=== PATIENT | female | born 1980 | race Caucasian/White ===

== ENCOUNTER 2019-06-02 09:00 | Outpatient (RCR) | payer MEDICAID, SELFPAY ==
--- NOTE | 2019-06-02 09:10 | BH.SGPN.GN ---
Behaviors/Verbalizations/Mental Status: [] Eye contact is good. Motor activity is appropriate. Appearance is casual. Speech is Appropriate. Mood is anxious. Affect is congruent. Thoughts are linear and logical. No evidence of psychosis. Reviewed daily check in sheet and no reports of suicidal ideations or intent. Client Response/Progress/Benefit: [] Pt spoke when prompted. This was pt's first group in IOP and remained quiet. Introduced herself however did not discuss any symptoms or what led her to IOP. Group welcomed her. No progress noted. Benefited from group support. Will continue in IOP to prevent decompensation, stabilize mood, and improve functioning. Narrative Note: []
--- NOTE | 2019-06-02 10:10 | BH.SGPN.GN ---
Behaviors/Verbalizations/Mental Status: []Client alert and oriented, casually dressed and groomed. Eye contact fair. Motor activity appropriate. Speech within normal limits. Affect constricted, mood anxious and depressed.. Thoughts linear, logical, no signs of hallucinations or delusions. Client Response/Progress/Benefit: []Pt was a passive participant as evidenced by pt only providing comments if elicited by therapist, however did appear to listen attentively to peers. Pt worked with the group to define anger and its causes, as well as the internal and external impacts of anger. Group identified potential consequences of unhealthy anger include: losing relationships, guilt, increased stress, resentment, lose job, depression and anxiety. Pt identified underlying factors of her anger include: feeling misunderstood, frustration, hurt feelings, disrespect, impatience, anxiety, other's being fake, bullying, and lying. Benefited from group by increasing awareness of the negative impacts of unhealthy anger and underlying factors that contribute to her personal anger. Pt's first day in IOP, appeared to be engaged in listening to information and others comments. Continued IOP tx to decrease depression, improve emotion regulation skills, and prevent decompensation. Narrative Note: []
--- NOTE | 2019-06-02 11:07 | BH.SGPN.GN ---
Behaviors/Verbalizations/Mental Status: [Eye contact is good. Motor activity appropriate. Appearance is causal, grooming attended to. Speech is appropriate rate and tone. Mood is euthymic, positive. Affect is congruent to mood. Thoughts are linear and logical. No evidence of psychosis.] Client Response/Progress/Benefit: [Pt remained an passive participant throughout, AEB engagement in activity but providing limited input to discussion potions of session. Taking notes throughout. Pt did well to participate in the group activity and incorporate anger management/emotion regulation skills in order to do so. Able to challenge herself to continue to participate. Worked with the group to process and identify the various barriers faced in the activity and skills used to successfully complete the task at hand without becoming dysregulated or angry. Pt identified barriers impacting own ability to better manage anger related symptoms in daily life which included: lack of healthy outlets, anxiety, and shutting down. Pt appeared to benefit from discussion regarding potential benefits of anger and brainstorming with the group potential strategies for emotional release or harnessing anger in healthy ways. Pt identified plans to work on positive self-talk as technique to improve coping with anger related sx. Recommended continued IOP txt to reduce mental health sx, continue to promote skill application, and prevent decompensation.] Narrative Note: []
--- NOTE | 2019-06-02 12:36 | BH.COMM ---
Communication Note - Communication with Client Communication Note: Met with pt after group to check-in. Completed CSSR-Screener which notes low risk. Denies any suicidal ideations, plan, or intent in the past month. Does not present as imminent danger due to no active ideations, plan, or intent. Reports that today was overwhelming at times. Admits that she was anxious throughout the day however plans on returning. Smiling.
--- NOTE | 2019-06-03 08:00 | BH.DS ---
Discharge Summary - Demographics Date of Admission:: 06/02/19 Discharge Date: 06/03/19 Presenting Problems at Admission:: Pt is a 32 year old female with hx of MDD, SILAS, and Bipolar. No previous psychiatric admissions. Referred to [facility] by outpatient mental health providers due to worsening depression and anxiety which has been interfering with daily functioning. Primary stressor is BF being given dx of terminal cancer. Frequent panic attacks and racing thoughts. Endorses decreased appetite, increased sleep, isolation, poor hygiene, and poor ADLs. Limited support. Denies active suicidal ideations, plan, or intent. Reports fleeting passive thoughts of or desire to be . Hx of previous suicide attempt in 2002 vis OD. Denies HI or psychosis. Hx of substance abuse. Currently uses cannabis. Discharge Diagnoses:: MDD, recurrent, unspecified F33.9. SILAS F41.1 Reason for Discharge:: Self-discharge. Pt called in stating that she is not in the right place for group therapy. Reports that her anxiety was very high yesterday in the group setting and doesn't believe that IOP will be as effective as individual counseling where she is most comfortable. - Treatment Progress During Treatment & Response: No progress noted as she was only in the program for 1 day. Never met with psychiatrist. Not in the program long enough to develop meaningful treatment plan or complete psychosocial assessment. Issues Still to be Addressed:: Anxiety, panic attacks, depression, Discharge Recommendations/Instructions:: Recommended that she follow through with IOP however pt declines. Pt reports that she will continue ind[facility]udal [facility] with [facility]. Will continue with medication managment through [facility]. Discharge Handout: Complete Discharge Handout with client on aftercare options and continuity of care.
== END 2019-06-03 08:00 | disposition home or self-care (01) ==
LOC: BHIOP 09:00
PROVIDERS: Family Provider Nurse Practitioner Family; PCP Nurse Practitioner Family; Referring Provider Psychiatry & Neurology Psychiatry; Visit Provider Psychiatry & Neurology Psychiatry
DX: F33.9 Major depressive disorder, recurrent, unspecified (principal); F41.1 Generalized anxiety disorder
CPT/HCPCS: H2020

== ENCOUNTER 2021-10-26 08:30 | Outpatient (RCR) | payer MEDICAID, SELFPAY ==
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
[2021-10-26 10:07] VITALS: BP 136/90; PULSE 69
--- NOTE | 2021-10-26 11:08 | BH.SGPN.GN ---
Behaviors/Verbalizations/Mental Status: []Client alert and oriented, casually dressed and groomed. Eye contact fair to good. Motor activity appropriate. Speech within normal limits. Affect congruent, mood anxious and depressed. Thoughts linear, logical, no signs of hallucinations or delusions. Client Response/Progress/Benefit: []Client first day in program. Did well to remain engaged in session AEB listening attentively, working collaboratively with others, and taking notes throughout discussions. Client was an active participant in challenge activity and did well to use communication skills to help group with problem solving. Client remained attentive during discussion about the 4 A's of managing stress and expressed connecting with the various benefits of each. Shared he would like to work on using the skill of accept and alter to begin addressing her mental health related stressors. Discussed she would like to continue to accept that mental health is something she struggles with and alter her approach to it be continuing with counseling and psychiatry through the IOP program. Client seemed to benefit from increased awareness of the impact of stress on mental health and increasing repertoire of stress management strategies. Will continue IOP tx to improve coping repertoire, reduce depressive sx, as well as prevent decompensation. Narrative Note: []
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
--- NOTE | 2021-10-26 11:54 | BH.DR.ITP ---
Initial Treatment Plan Patient Information Visit Information: ADMISSION DATE: EXPECTED LOS: 4-6 weeks Problems/Symptoms Problem #1:: Depression Symptom:: Sadness, crying, hopelessness, disruption of appetite and sleep, decreased concentration, guilt, anhedonia, passive thoughts of , recent passive fleeting suicidal ideation Problem #2:: Anxiety Symptom:: Worry, rumination, panic attacks, nightmares, flashbacks, avoidance, hypervigilance
--- NOTE | 2021-10-28 09:05 | BH.SGPN.GN ---
Behaviors/Verbalizations/Mental Status: [] Eye contact is good. Motor activity is appropriate. Appearance is casual. Speech is Appropriate. Mood is anxious. Affect is congruent. Thoughts are linear and logical. No evidence of psychosis. Reviewed daily check in sheet and no reports of suicidal ideations or intent. Client Response/Progress/Benefit: [] Pt was an active participant in group discussion on blame and empathy. Attentive. Provided appropriate feedback. Daily symptom tracker notes 4/5 for anxiety and 2/5 for depression. Emotion for today is hopeful. Mental health win is this is the 5th day straight that I left the house. Shared that she has been avoiding and isolating in her house for several months. Talked about her grief related to of BF in 02/2022 and how this has impacted her mental health. Has been anxious and fearful to leave her comfort zone. Yesterday she attended a grief support group and she is beginning to process her emotions. I need to take my mental health serious and starting working on it. Hx of non-compliance with treatment. Progress noted. Benefited from group support, encouragement, and feedback. Will continue in IOP to maintain safety, prevent decompensation, and improve functioning Narrative Note: []
--- NOTE | 2021-10-28 10:07 | BH.SGPN.GN ---
Behaviors/Verbalizations/Mental Status: [] Client alert and oriented, casually dressed and groomed. Eye contact good. Motor activity appropriate. Speech within normal limits. Affect congruent, mood depressed and anxious. Thoughts linear, logical, no signs of hallucinations or delusions. Client Response/Progress/Benefit: [] Client responded well to session, attentive and contributing to discussion. Group discussed potential barriers to communication including: assumptions, shutting down, passive-aggressive behaviors, and making vague comments. Client shared that she has struggled with not communicating her frustrations until they have built to the point of exploding, noting this ends in increased frustration and relationship tension as a result. Helped group identified positives of having effective communication skills, indicating that ?Communication helps build trust and work on challenging out perspective?. Attentive during psychoeducation on the four communication styles. Client reported she uses passive communication until her frustrations compile to point where she reacts aggressively. Shared this has created additional problems within the family dynamics and that she has been actively working to be more assertive in order to set a better example for her children. Seemed to benefit from increased awareness of the different communication styles and identify personal communication style. Client will continue in IOP tx to further improve mood stability and healthy coping repertoire, reduce depression, and prevent decompensation. Narrative Note: []
--- NOTE | 2021-10-28 11:04 | BH.SGPN.GN ---
Behaviors/Verbalizations/Mental Status: []Client alert and oriented, casually dressed and appropriately groomed. Eye contact fair. Motor activity appropriate. Speech WNL. Affect constricted, mood dysthymic and anxious. Thoughts linear, logical, no signs of hallucinations or delusions. Client Response/Progress/Benefit: []Client responded well to session AEB client listening attentively to others and providing input during group discussion on the pay offs and costs of the different communication styles. Attentive during psychoeducation on interpersonal DBT skill KATE and client selected a communication skill to practice. Client selected the skill of describing the problems and mindfulness. Client stated she needs to work on sticking to the facts of the situation and being mindful of her emotions so she doesn't bring up past situations that doesn't help the situation. Client seemed to benefit from increasing awareness of healthy strategies to improve communication. Will continue IOP tx to improve daily functioning, decrease anxiety and prevent decompensation.
--- NOTE | 2021-11-02 09:05 | BH.SGPN.GN ---
Behaviors/Verbalizations/Mental Status: [] Eye contact is good. Motor activity is appropriate. Appearance is disheveled. Speech is Appropriate. Mood is anxious. Affect is congruent. Thoughts are linear and logical. No evidence of psychosis. Reviewed daily check in sheet and no reports of suicidal ideations or intent. Client Response/Progress/Benefit: [] Pt participated at times during group discussion. Attentive. Provided appropriate feedback. Emotion for today is anxious and hopeful. She shared with the group her struggles with isolative behaviors and how this has impacted her mental health over the past few years. She also discussed the reasons behind isolation (Avoidance of certain people, safe space, and guilt/embarrassment of past behaviors). Appears motivated to decrease severe isolation (can spend weeks alone in her house). Insight of the benefits of decreasing isolation by attending IOP and grief support group. Minimal progress noted per pt. Beneifted from group support, encouragment, and feedback. Will continue in IOP to maintain safety, prevent decompensation, and increase healthy coping skills. Narrative Note: []
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
--- NOTE | 2021-11-02 10:26 | BH.MTP_ITS ---
[facility] Treatment Plan - Patient Information Program Physician:: Dr. Lakesha Polk Primary Therapist:: Niels Swartz - Psychiatric Diagnoses Psychiatric Diagnoses:: 1. Bipolar 1 disorder, most recent episode depressed, severe without psychosis (F31.4). 2. Generalized anxiety disorder. 3. PTSD. 4. Methamphetamine use disorder, sober x2 months. 5. History of opiate use disorder and alcohol use disorder Diagnosis Code(s):: F31.4 - Estimated LOS Estimated LOS (in weeks):: 6 Problem/Goal #1 - Problem/Goal #1 Stated Goal:: Client will reduce depressive symptoms, worthlessness, irritability, crying spells, hopelessness, passive thoughts of , and negative core beliefs associated with major depressive disorder AEB reduction of scores on the depressive domain of the DSM-5 cross-cutting scales. Description of Barriers: Limited support, grief (fianc? in 02/2021), financial stressors, conflict with support, early remission from substance abuse Functional Impact: Recent psych admission due to depression, isolative and avoidance behaviors (rarely leaves the house), depression impacting ability to work. - Objectives Objective #1 Stated Objective: Client will learn and utilize 2-3 healthy coping strategies to manage depressive symptoms Interventions: Therapist will help client identify distorted, negative beliefs about self and replace with more realistic, affirmative messages. Therapist will use CBT to help client increase insight to the connection between thoughts, emotions, and behaviors. Therapist will encourage client to practice thought challenging. Discharge Criteria: Able to identify and consistently use 2-3 healthy coping skills for depression. Reduction on DSM-5 depression domain. Target Date: 12/12/21 Review Date: 11/26/21 Objective #2 Stated Objective: Client will identify 3-4 sources or triggers to suicidal ideations and emotional distress to increase insight. Interventions: Through individual and group counseling will provide psychoeducation on depression and help client increase awareness of warning signs and triggers. Therapist will promote client self-empowerment and self- esteem by helping client identify strengths, personal resilience factors, and positives of boundary setting. Discharge Criteria: Will be able to identify triggers to SI, emotional distress, and isolative behaviors. Increased awareness and education on depression, guilt, and negative automatic thoughts through pt self-report. Will show decreased scores on the DSM-5 depression domain. Target Date: 12/12/21 Review Date: 11/26/21 Problem/Goal #2 - Problem/Goal #2 Stated Goal:: Client will reduce overall frequency, intensity, and duration of anxiety to improve functioning AEB by a reduction of scores on the anxiety domain of the DSM-5 cross-cutting scales. Description of Barriers: Grief (recent of figaby?), severe isolation, limited support, Functional Impact: Due to anxiety and grief pt has had significant isolative behaviors (rarely leaving the house since 02/2021). Unable to hold a job. Financial stressors (relies on uncle for help). Conflicted relationship with her daughter (15) due to current mental status. Daughter had to move in with uncle. - Objectives Objective #1 Stated Objective: Client will learn and implement 2-3 calming skills to reduce overall anxiety and manage anxiety Interventions: Through individual and group counseling will teach the client calming/relaxation skills (e.g., muscle relaxation, mindful breathing) and how to discriminate better between relaxation and tension; teach the client how to apply these skills to his/her daily life. Discharge Criteria: Able to identify and consistently utilize per self-report 3 calming skills to manage anxiety and improve functioning. Target Date: 12/12/21 Review Date: 11/26/21 Objective #2 Stated Objective: Client will reduce avoidance behaviors that reinforce anxiety and will increase social interactions and learn 2-3 strategies to improve interpersonal effectiveness skills. Interventions: Through individual and group counseling will teach client ways to use cognitive restructuring techniques and help client gain awareness of negative thoughts that reinforce avoidance behaviors and fear of judgement. Therapist will help client incorporate mindfulness, opposite action, and self- talk strategies to manage anxiety. Discharge Criteria: Pt will self-report decreased avoidance behaviors and increased socialization. Will also be able to identify strategies to improve communication and interpersonal skills. Target Date: 12/12/21 Review Date: 11/26/21
--- NOTE | 2021-11-02 10:26 | BH.MDN ---
Multi-Disciplinary Note - Note 45-min Individual Time Started:: 10:25 Date: 11/02/21 Purpose of session/treatment goals addressed:: Reviewed current progress in IOP. Discussed treatment plan goals with patient. Eye Contact:: Good Motor Activity:: Appropriate Appearance:: Casual Speech:: Appropriate Mood:: Depressed Affect:: Flat Thoughts:: Linear, Logical, No evidence of hallucinations/delusions noted Staff Interventions:: thought challenging, CBT techniques, mindfulness skills, rapport building, treatment planning, goal setting Client Response:: Pt tearful at times during the session. Reports that she had a fleeting suicidal thought yesterday related to concern that she had upset a friend. What is the point of life?. Denies that she had plan or intent. Thought was more passive. Shared that negative automatic thoughts can escalate after a stressor. She began to have thoughts that she was worthless and that she deserves to be miserable due to her past mistakes. I'm ashamed of my past referring to drug use and conflict with support. Responded well to reframing and challenging thoughts. Open to education on cognitive distortion of mind reading and should statements which were primary thought patterns that led to escalation. Her goals for IOP include increased awareness, improved communication skills, improved self-esteem/ skills to manage depression and neg automatic thoughts, and healthy ways to cope with stress and anxiety. Risks/Concerns:: Denies active suicidal ideations, plan, or intent. Reports fleeting SI yesterday night. Contracts for safety. Future-oriented (talking about seeking employment or going back to school). Protective factors. Reports that thoughts were not that hard to manage last night. Progress Toward Goals/Plan:: Pt has been attending IOP consistently. Missed one day due to snow. Engaged in group discussions. Reports that she enjoys the program and the support. Medication compliant. Along with IOP she also attends a grief support group (tere? in 02/2021). Verbalizes progress AEB by decreased isolation, however admits that she ruminates extensively on her past mistakes and is very anxious/fearful to leave the house. She is 67 days sober and denies any struggles with triggers or urges. Plan is to continue in IOP to maintain safety, increase healthy coping, and improve functioning.
--- NOTE | 2021-11-02 11:13 | BH.SGPN.GN ---
Behaviors/Verbalizations/Mental Status: []Client alert and oriented, casually dressed and groomed. Eye contact good. Motor activity appropriate. Speech within normal limits. Affect constricted, mood depressed and anxious. Thoughts linear, logical, no signs of hallucinations or delusions. Client Response/Progress/Benefit: []Client engaged participant AEB client participating in the activity, providing some input during small group discussion, and listening attentively to others. Continues to struggle with anxiety in group setting though is making progress in improving group participation. Group brainstormed strategies to combat social and perceived stigma which included: educating themselves and others, no longer using negative language about mental illness, communicating with supports, advocacy, and attending support groups. Client shared one thing she can personally do to combat stigma is to identify and challenge her own use of stereotyping. Shared she would like to work on improving overall ability to become a champion for her own mental health, as well as others. Appeared to benefit from increasing awareness of strategies to combat stigma. Will continue IOP tx to continue to promote sobriety, reduce distorted thinking patterns which reinforce depression and anxiety, and continue to improve healthy coping skills. Narrative Note: []
--- NOTE | 2021-11-04 09:05 | BH.SGPN.GN ---
Behaviors/Verbalizations/Mental Status: [] Pt eye contact fair to good, casually dressed, motor activity appropriate, speech normal rate and tone, mood depressed and anxious, constricted affect, thoughts linear and intact, no evidence of delusions or hallucinations. Reviewed client?s symptom tracker, no indication of suicidal ideation, plan, or intent as of today. Client Response/Progress/Benefit: [] Pt responded well to session AEB by listening to others, and sharing thoughts and feelings with group. Pt reports mood as ?downtrodden?, sharing that she has been struggling with adjusting to all the recent changes in her life. Acknowledged these are positive changes such as over 60 days sober, seeking treatment, and challenging herself to use healthy skills when struggling with stress and anxiety; however, notes difficulties in adjusting and motivating herself to continue doing so. Shared that a recent conversation in which her daughter expressed pride in pt?s commitment to maintaining sobriety and seeking mental health treatment has been an ongoing motivator for her to continue to seek treatment. Appeared to benefit and connect with supportive feedback provided by fellow participants. Expressed plans to continue to break things down into small, manageable steps to reduce feelings of anxiety and being overwhelmed. Recommended continued IOP to further decrease anxiety and challenge distorted thoughts, improve coping skill knowledge and application, maintain sobriety, as well as prevent decompensation. Narrative Note: []
--- NOTE | 2021-11-04 10:10 | BH.SGPN.GN ---
Behaviors/Verbalizations/Mental Status: []Client alert and oriented, casually dressed and groomed. Eye contact fair. Motor activity appropriate. Speech within normal limits. Affect congruent, mood anxious and euthymic. Thoughts linear, logical, no signs of hallucinations or delusions. Client Response/Progress/Benefit: []Pt was an attentive participant AEB taking notes and contributing throughout. Attentive during psychoeducation on Conflict Styles ( Avoidant, Competing, Accommodating, and Collaborating). Participated in interactive group discussion on benefits of conflict.? Pt along with peers identified several reasons conflict is often avoided which included: anxiety, fear of other?s reaction, not wanting to face additional conflict, and negative past experiences. Pt reported connecting most with accommodating with her kids. Pt stated she realizes she has become a door mat due to be too permissible with her kids. Benefited from increased awareness on conflict styles. Will continue in IOP to maintain sobriety, continue use of healthy coping, improve daily functioning and prevent decompensation.
--- NOTE | 2021-11-04 11:10 | BH.SGPN.GN ---
Behaviors/Verbalizations/Mental Status: []Client alert and oriented, casually dressed and groomed. Eye contact fair. Motor activity appropriate. Speech within normal limits. Affect constricted, mood anxious.Thoughts linear, logical, no signs of hallucinations or delusions. Client Response/Progress/Benefit: []Client engaged in session AEB contributing to discussion and engaging in activity. Client did well to review conflict styles and the various impacts of each on mental health. Client participated in activity and was actively listening to peers? suggestions at times, as well as was willing to be assertive when the potential conflict was important. Client attentive on education about fair fighting rules handout. To better address conflict, client wants to work on using calmer tone when upset with others instead of yelling. Client reported she knows yelling doesn't get much accomplished and can lead to guilt after the fact. Also stated wants to work on taking responsibility for her mistakes. Appeared to benefit from gaining strategies to help client better manage conflict. Pt to continue IOP to increase healthy coping, maintain sobriety, improve daily functioning and prevent decompensation.
== END 2021-11-07 23:59 ==
LOC: BHIOP 08:30
PROVIDERS: PCP Nurse Practitioner Family; Referring Provider Psychiatry & Neurology Psychiatry; Visit Provider Psychiatry & Neurology Psychiatry
DX: F31.4 Bipolar disorder, current episode depressed, severe, without psychotic features (principal); F11.99 Opioid use, unspecified with unspecified opioid-induced disorder; F41.8 Other specified anxiety disorders; F43.10 Post-traumatic stress disorder, unspecified; Z91.51 Personal history of suicidal behavior; R45.851 Suicidal ideations; Z62.810 Personal history of physical and sexual abuse in childhood; Z62.811 Personal history of psychological abuse in childhood; Z91.410 Personal history of adult physical and sexual abuse; Z91.411 Personal history of adult psychological abuse; Z81.8 Family history of other mental and behavioral disorders; Z79.899 Other long term (current) drug therapy; F17.210 Nicotine dependence, cigarettes, uncomplicated; G89.4 Chronic pain syndrome; M54.59 Other low back pain
CPT/HCPCS: 90792; H2012; H2020; S9480; T1002; 90834

== ENCOUNTER 2021-11-08 07:31 | Outpatient (RCR) | payer MEDICAID, SELFPAY ==
[2021-11-08 00:49] VITALS: BP 136/90; PULSE 69
--- NOTE | 2021-11-14 09:00 | BH.SGPN.GN ---
Behaviors/Verbalizations/Mental Status: []Eye contact is good. Motor activity is appropriate. Appearance is casual. Speech is appropriate. Mood is euthymic. Affect is congruent. Thoughts are linear and logical. No evidence of psychosis. Reviewed daily symptom tracker sheet with no reports of suicidal ideations, plan, or intent. Client Response/Progress/Benefit: [] Client was engaged throughout group session, sharing and providing insight to others. Client reported her emotion as ?happy?. Client stated that one of her family members who previously did not understand mental health is taking a course to learn more, which she is happy about. Client reported having experienced a ?grief landmine? over the weekend, but was able to not let it ruin her whole day through utilizing deep breathing and affirmations. Appeared to benefit from supportive group environment.Progress noted AEB client reporting that she was able to cope with unexpected grief triggers through healthy coping skill application. Will continue IOP treatment to continue increasing knowledge and application of healthy coping skills to increase functioning. Narrative Note: []
--- NOTE | 2021-11-14 10:00 | BH.SGPN.GN ---
Behaviors/Verbalizations/Mental Status: []Eye contact is fair. Motor activity is appropriate. Appearance is casual and grooming tended to. Speech is Appropriate. Mood is euthymic. Affect is congruent. Thoughts are linear and logical. No evidence of psychosis or delusions. Client Response/Progress/Benefit: []Pt was an engaged participant AEB providing input at times during group discussion and was attentive to others comments. Pt appeared attentive AEB taking notes during psychoeducation about cognitive distortions and listened attentively to examples provided for each distortion. Pt seemed to benefit from increased awareness of cognitive distortions and the role that they play on our behaviors and emotions. Shared top three personal distortions uses the most includes: jumping to conclusions, personalization, and emotional reasoning. Will continue IOP tx to improve daily functioning, decrease isolative behaviors and prevent decompensation. Narrative Note: []
--- NOTE | 2021-11-14 11:15 | BH.SGPN.GN ---
Behaviors/Verbalizations/Mental Status: []Client alert and oriented, casually dressed and groomed. Eye contact good. Motor activity appropriate. Speech within normal limits. Affect congruent, mood euthymic. Thoughts linear, logical, no signs of hallucinations or delusions. Client Response/Progress/Benefit: []Pt active throughout session, taking notes and contributing examples. Pt was an actively engaged participant in Cognitive Distortions Jeopardy and utilized notes from psychoeducation on cognitive distortions to assist peers in correctly answering questions. Experiential activity was beneficial as it provided a way for pt to review notes and handouts during psychoeducation to answer questions for the game. Pt reflected on today?s topic and wrote to stop ?shoulding? on herself because it ?makes me feel like I?ve failed before I?ve even started? as her biggest take away from session. Pt was given a thought log to complete for homework. Will continue in [facility] tx to prevent decompensation, improve daily functioning, and combat distortions that reinforce depression. Narrative Note: []
--- NOTE | 2021-11-16 10:10 | BH.SGPN.GN ---
Behaviors/Verbalizations/Mental Status: [] Eye contact is good. Motor activity is appropriate. Appearance is casual. Speech is Appropriate. Mood is depressed. Affect is flat. Thoughts are linear and logical. No evidence of psychosis Client Response/Progress/Benefit: [] Pt was an active participant and engaged during group discussion. Attentive and engaged during psychoeducation on types of boundaries (physical, emotional, sexual, material, and time). Participated in interactive discussion on defining the role of a boundary in mental health. Pt along with peers were able to identify the benefit of setting boundaries which included; personal growth, more control over one's time and life, can improve relationships, can improve mental health, helps us respect ourselves more, and helps us get more accomplished. Pt also provided feedback along with peers on the barriers or things that keep us from from setting boundaries such as; wanting to avoid conflict, fear of missing out, fear of someone not liking us, fear of other's getting angry, belief that one will not stick with the boundary set, and feeling selfish. Benefited from increased awareness of the role of boundaries in mental health. Will continue in IOP to maintain safety, increase healthy coping, and decrease isolative behaviors. Narrative Note: []
--- NOTE | 2021-11-16 12:01 | PCM.BH.PN ---
Progress Note Progress Note: History of Present Illness/Interim History: [] The patient is a 40-year-old female who is seen in follow-up at the [facility] behavioral health IOP program. I last saw the patient 3 weeks ago. The patient states that she is having a good week currently. She was out of the IOP last week due to a mild illness. She has now recovered and is feeling good. She describes her mood as good. Minimal depression now according to the patient. She denies any wong symptoms. She is feeling less hopeless and worthless but still occasionally has those feelings. She is still having some passive thoughts that she would not care if she the most recent time for this was 3 days ago. She denies any suicidal ideation now. She denies also homicidal ideation, hallucinations or delusions. She is having panic attacks still several times a week the most recent one being 3 days ago. She remains completely sober from all drug use for 81 days now. The patient saw her outpatient provider a day after I saw her and was prescribed trihexyphenidyl 2 mg for her apparent akathisia she attributes to the Seroquel. She also decrease the Seroquel to 50 mg at bedtime but the patient states that her akathisia symptoms have remained the same since decreasing the Seroquel. She says that the medication for it helps but it takes an hour to work. Current Psychiatric Medications: [] Seroquel decreased to 50 mg p.o. nightly several weeks ago; lithium 300 mg p.o. twice a day; trazodone 100 mg p.o. nightly which the patient says does not help her sleep. Hydroxyzine 50 mg up to 3 times a day. Trihexyphenidyl 2 mg, 1-2 at bedtime. Mental Status Examination: [] The patient is a 40-year-old female who is seen wearing a mask due to the pandemic and is casually dressed and groomed with good hygiene. She has no psychomotor agitation or retardation. Eye contact is good and speech is normal rate and rhythm and fluent with no pressure. Mood is euthymic today or minimally depressed. Affect is full and normal. Thought process is goal-directed and organized. Thought content: There is evidence of passive thoughts of several times a week in the past week. There is no evidence of suicidal ideation, plan for suicide, homicidal ideation, hallucinations or delusions or symptoms of wong. Reality testing is intact. Judgment is limited but improving. Insight is limited but improving. Impulsivity is high. Diagnoses: [] 1. Bipolar 1 disorder, most recent episode depressed, severe without psychosis (resolving) 2. Generalized anxiety disorder 3. PTSD 4. Methamphetamine use disorder, sober x81 days 5. History of opiate use disorder and alcohol use disorder 6. Primary support issues Plan: [] The patient will continue the IOP program at [facility] as the structure, support, education and group therapy will hopefully prevent worsening of the patient's symptoms. She felt safe during the interview and if it anytime she does not feel safe she will let us know or go to the emergency room. The risks, options, possible complications and side effects of the medications were again discussed with the patient and she understands and accepts these. The patient agrees to stop the trazodone as she does not feel it helps her at all. She agrees to increase the Seroquel back up to 100 mg p.o. nightly and to take her trihexyphenidyl 4 mg p.o. 1 hour before bedtime. She will continue her other medications at their current doses. She will continue to follow-up with her outpatient medical and psychiatric providers and I will see the patient in follow-up in a few weeks or as needed.
--- NOTE | 2021-11-16 12:26 | BH.MDN_ITS ---
Multi-Disciplinary Note - Note 30-min Individual Time Started:: 09:30 Date: 11/16/21 Purpose of session/treatment goals addressed:: Reviewed current symptoms and progress in IOP. Pt was out all of last week due to illness. Admits to isolating and experiencing a depressive episode as well. Eye Contact:: Good Motor Activity:: Restless Appearance:: Disheveled Speech:: Rapid Mood:: Anxious Affect:: Congruent Thoughts:: Linear, Logical, No evidence of hallucinations/delusions noted Staff Interventions:: psychoeducation on: - cognitive distortion, FOF, CBT techniques, goal setting - Developed small goals to increase purpose and break negative routine Client Response:: Pt apologizes for missing IOP last week noting illness. She is honest that she was also isolating due to her mental health as well. Notes increased depression and negative thoughts which led to isolation. I didn't leave my room for several days. Elaborated that when overwhelmed and depressed she will not even leave her room to go to the kitchen or living room. She will stay in her room and sleep or watching TV to cope and escape. Minimal use of any skills to break depressive cycle. Feels powerless when depression occurs and retreats to her safe space. She was open to discussing ways to break depressive cycle and using last week as an opportunity to learn and incorporate new strategies. She was able to identify skills such as opposite action and goal- setting to break unhealthy routines. Able to identify several new strategies to use in the future. She is medication compliant and remains sober. Feels motivated this week. Insight that her mood is situational and when low she tends to give into the depression by isolating and sleeping. Risks/Concerns:: Denies SI, plan, or intent. No risk identified. Progress Toward Goals/Plan:: Limited progress as pt isolated last week while in a depressive episode. She struggled to utilize any coping skills or strategies. Currently she reports feeling motivated and in a better place. Minimizes her isolation and depression from last week mainly because this has been her norm for the past year (since losing her fianc?). She has remained sober and self- reports increased communication and being less harsh on herself which has improved relationship with her support. Struggles to utilize skills learned often reverting to escape (sleep, isolation) however insight that she is doing this. Reports increased support and education in IOP. Was able to develop new strategies in session today to use to manage future depressive episodes. Time Stopped:: 10:00
--- NOTE | 2021-11-18 09:05 | BH.SGPN.GN ---
Behaviors/Verbalizations/Mental Status: [] Eye contact is good. Motor activity is appropriate. Appearance is casual. Speech is Appropriate. Mood is euthymic. Affect is full. Thoughts are linear and logical. No evidence of psychosis. Reviewed daily check in sheet and pt reports 1/5 for suicidal thoughts and 0/5 for intent. This is baseline for patient. Client Response/Progress/Benefit: [] Pt was an active participant in group discussion. Attentive. Provided appropriate feedback. Emotion for today is optimistic. Pt states that her mood is positive and I'm not going to question it. In the past she reports she would assume that good moments meant something bad was on the horizon. Mentions that she is 83 days sober. Improved motivation and energy stating It feels good to look forward to being out of the house. She returned to grief group this week and reports that she is benefiting from group and support which is weird cause I have trouble trusting people. Improved communication with her uncle (primary support) who plans on attending a mental health CPR class to increase his knowledge of mental illness. This is very nice. Progress noted per pt report. Benefited from group support, encouragment, and feedback. Will continue in IOP to prevent decompensation, increase healthy coping, and stabilize mood. Narrative Note: []
--- NOTE | 2021-11-18 10:06 | BH.SGPN.GN ---
Behaviors/Verbalizations/Mental Status: []Client alert and oriented, neatly dressed and groomed. Eye contact good. Motor activity appropriate. Speech within normal limits. Affect congruent, mood euthymic. Thoughts linear, logical, no signs of hallucinations or delusions Client Response/Progress/Benefit: []Client engaged during session AEB client contributing thoughts throughout discussion and completing worksheet. Connected with discussion on crisis and how coping with external crises by using unhealthy coping skills could result in a personal crisis. Group reflected on the importance of having awareness of personal warning signs to prevent reaching crisis point. Group identified potential warning signs for crisis and client completed the personal warning signs worksheet. Client identified personal crisis warning signs to include: isolation, uncontrollable worry, and increased impulsivity. Client benefited by increasing awareness of what leads to crisis and personal warning signs. Client will continue IOP tx to combat distorted thought patterns, improve emotional regulation skills, and improve daily functioning. Narrative Note: []
--- NOTE | 2021-11-18 11:07 | BH.SGPN.GN ---
Behaviors/Verbalizations/Mental Status: []Client alert and oriented, casually dressed and groomed. Eye contact good. Motor activity appropriate. Speech within normal limits. Affect congruent, mood anxious. Thoughts linear, logical, no signs of hallucinations or delusions. Client Response/Progress/Benefit: []Client responded well to session as evidenced by client listening attentively to others and providing strategies during small group discussion. Reflected on the importance of identifying and addressing personal warning signs to be able to prevent self-sabotage behaviors, providing personal examples. Client identified warning signs for crisis and gained further awareness of earliest warning signs. Client created a crisis action plan to help client better manage warning signs for crisis. Client?s action plan for isolation/avoiding others included: exercise, get outside or change the environment, walk a pet, get showered and ready for the day, as well as reach out for help. Client appeared to benefit from creating a crisis action plan and increasing self-awareness. Progress noted in reports of reduced isolation and increased positive self-talk. Client to continue IOP tx to maintain mood stability, continue to promote healthy coping, and reduce isolation behaviors. Narrative Note: []
--- NOTE | 2021-11-21 09:00 | BH.SGPN.GN ---
Behaviors/Verbalizations/Mental Status: []Client alert and oriented, casually dressed and groomed. Eye contact good. Motor activity appropriate. Speech within normal limits. Affect constricted, mood euthymic. Thoughts linear, logical, no signs of hallucinations or delusions. Reviewed client?s symptom tracker, no risk for suicidal ideation, plan, or intent as of 11/21/21 Client Response/Progress/Benefit: []client responded well to session, attentive and providing positive feedback. Client reports feeling happy and tired this morning. Client shared she has been working on challenging her negative thinking while in IOP and learning how to love herself. Client reported she has been giving herself more credit lately and acknowledging the little wins. Client also stated she is keeping up with individual goals and has been isolating less. Client's stressor today is that sleep continues to be hit or miss for me. Appeared to benefit from reflecting on improved mood and functioning. Will continue IOP tx to promote gains, further reduce depressive symptoms, and improve daily functioning. Narrative Note: []
--- NOTE | 2021-11-21 10:08 | BH.SGPN.GN ---
Behaviors/Verbalizations/Mental Status: []Client alert and oriented, casually dressed and groomed. Eye contact good. Motor activity appropriate. Speech within normal limits. Affect congruent, mood euthymic. Thoughts linear, logical, no signs of hallucinations or delusions. Client Response/Progress/Benefit: []Client responded well to session AEB sharing and listening attentively to others. Client participated in experiential activity illustrating resilience, providing problem solving strategies and supportive feedback to others.Client participated in group processing, providing insight into the symbolic nature of the activity. Participated in group discussion of where resilience comes from, stating that while kids are naturally resilient, there is also a nurture component. Listened attentively and nodded throughout group discussion of barriers to building resilience. Identified decreasing stress as a benefit to building resilience. Clinician provided psychoeducation on ten strategies to increase resilience. Appeared to benefit from increased knowledge of strategies to build resilience. Will continue IOP treatment to continue increasing depression management skills and continue utilization of healthy coping to further improve daily functioning. Narrative Note: []
--- NOTE | 2021-11-21 11:07 | BH.SGPN.GN ---
Client responded well to session AEB contributing to discussion and completing the resilience worksheet provided. Client participated in the discussion of how each resiliency component can help increase personal resiliency. Worked cooperatively with group to identify strategies to enhance each of the components discussed. Client identifying doing well with the resilience components of: nurture a positive view of self and take care of yourself. Went on to reflect wanting to improve in the personal resilience component of ?Accept that change is a part of living?. Client stated she wants to work on this by reminding herself that just because she accepts a change does not mean she has to like or condone it. Client seemed to benefit from discussing strategies for improving personal resilience. Will continue IOP tx to prevent decompensation, continue to promote application of healthy coping skills, and maintain sobriety.Client alert and oriented, casually dressed and groomed. Eye contact good. Motor activity appropriate. Speech within normal limits. Affect congruent, mood euthymic and anxious. Thoughts linear, logical, no signs of hallucinations or delusions Behaviors/Verbalizations/Mental Status: [] Client Response/Progress/Benefit: [] Narrative Note: []
--- NOTE | 2021-11-23 10:10 | BH.SGPN.GN ---
Behaviors/Verbalizations/Mental Status: []Client alert and oriented, casually dressed and groomed. Eye contact good. Motor activity appropriate. Speech within normal limits. Affect congruent, mood euthymic. Thoughts linear, logical, no signs of hallucinations or delusions. Client Response/Progress/Benefit: []Client responded well to treatment AEB sharing and listening attentively to others. Client participated in group discussion defining taking action, providing an example of taking action in relationships through communication. Group identified barriers to taking action, with client providing self doubt and lack of connection to others as examples. Clinician discussed how certain emotional states can color our perspective, describing it as ?what is driving your bus?. Client provided isolation, mindreading, and negative thinking as driving her ?bus? most often. Appeared to benefit from increased self-awareness and knowledge regarding examples and barriers to taking action. Will continue IOP treatment to continue improving healthy coping skills and decrease self-isolation to improve daily functioning. Narrative Note: []
--- NOTE | 2021-11-23 10:56 | BH.MDN_ITS ---
Multi-Disciplinary Note - Note 45-min Individual Time Started:: 09:30 Date: 11/23/21 Purpose of session/treatment goals addressed:: Reviewed progress and current symptoms. 4 weeks treatment plan review. Aftercare/Discharge planning. Eye Contact:: Good Motor Activity:: Appropriate Appearance:: Casual Speech:: Appropriate Mood:: Euthymic Affect:: Full Thoughts:: Linear, Logical, No evidence of hallucinations/delusions noted Staff Interventions:: CBT techniques - cognitive distortions., treatment planning, reviewed DSM-5, other - praise Client Response:: Pt presents today in good spirits. She believes that she has made significant progress in the past week. Reviewed outcomes from 4 week outcomes. Attributes progress to a number of factors including IOP, support, new skills, reframing thoughts, consistent sobriety, and increased communicate. Pt states I'm learning to be vulnerable and talk about myself I'm not holding stuff in. She is addressing stressors rather than avoiding and isolating. Decreased isolation. Reports improved self-esteem as she was offered two jobs in the past week. She is contemplating both however is unsure If I can handle all this progress at once Doesn't want to overwhelmed herself. Reports that she is almost 90 days sober and this feels great. Future-oriented and less depressed. After he (BF) I thought my life was over but I'm learning that there are so many opportunities. She continues to speak with her daughter and notes improved relationship. We discussed and reviewed certain cognitive distortions. Risks/Concerns:: No risks or concerns noted. Progress Toward Goals/Plan:: Reviewed DSM-5 outcomes as this is pt's 4th week in the program. Overall 29% decrease in symptoms. 13% decrease in the depression domain. 33% decrease in anger domain. 25% decrease in anxiety domain. Suicidal thoughts decreased 50% in the past 2 weeks. Pt also self-reports decreased isolation, improved communication, and overall feeling more hopeful. Continued sobriety. As recent as 3 months ago pt spent most days of the week isolating in her room with significant depression and grief This lead to substance abuse and relationship conflict with daughter. Praised for her continued effort. We discussed discharge as this is pt's 4th week in IOP. She is linked with counseling, psychiatry, and has agreed to the aftercare program here at [facility]. Will continue in IOP to maintain gains, prevent decompensation, and increase healthy coping. Time Stopped:: 10:10
--- NOTE | 2021-11-23 11:15 | BH.SGPN.GN ---
Behaviors/Verbalizations/Mental Status: []Client alert and oriented, casually dressed and groomed. Eye contact good. Motor activity appropriate. Speech within normal limits. Affect congruent, mood euthymic. Thoughts linear, logical, no signs of hallucinations or delusions. Client Response/Progress/Benefit: []Client responded well to session, taking notes and participating in worksheet discussion. Client identified she wants to take action on decreasing isolation and avoidance. Client stated her goal is to get out of her bedroom and hang out in her living room for 15 minutes at least once a week. Identified prioritizing goal, calming skills to manage discomfort, setting reminders, and encouraging self as strategies to help support her with this goal. Appeared to benefit from identifying a small goal to benefit mental health. Client to continue IOP to decrease avoidance of anxious things, continue use of healthy coping and prevent decompensation.
--- NOTE | 2021-11-25 10:27 | BH.COMM ---
Communication Note - Communication with Client Communication Note: cancelled due to weather
--- NOTE | 2021-11-25 14:17 | BH.MTP_ITS ---
Treatment Plan Review Date of Admission:: 10/26/21 Date of Treatment Plan Review:: 11/23/21 Admitting Diagnoses:: Bipolar 1 disorder, most recent episode depressed, severe without psychosis (F31.4). 2. Generalized anxiety disorder. 3. PTSD. 4. Methamphetamine use disorder, sober x3 months. 5. History of opiate use disorder and alcohol use disorder Current Diagnoses:: Bipolar 1 disorder, most recent episode depressed, severe without psychosis (F31.4). 2. Generalized anxiety disorder. 3. PTSD. 4. Methamphetamine use disorder, sober x3 months. 5. History of opiate use disorder and alcohol use disorder Patient's Response to Treatment:: Struggled with consistent attendance for the first 2 weeks related mainly to anxiety and depression. Pt would often isolate at home for several days in a row. Anxiety, depression, and grief resulted in patient missing 3 days of IOP the week of 11/07/21. Since that depressive episode she has been consistent and engaged in IOP. When present in groups she is engaged and shows insight. Status of Current Problems and Symptoms: Pt completed DSM-5 outcomes at 4 week interval which showed an overall 29% decrease in symptoms. 13% decrease in the depression domain. 33% decrease in anger domain. 25% decrease in anxiety domain. Suicidal thoughts decreased 50% in the past 2 weeks. Pt also self-reports decreased isolation, improved communication, and overall feeling more hopeful. Continued sobriety. As recent as 3 months ago pt spent most days of the week isolating in her room with significant depression and grief This lead to substance abuse and relationship conflict with daughter. Praised for her continued effort. This is patient's 4th week in IOP, however she did miss a full week due to mild medical symptoms and significant depression (which caused isolation). Staff present during review. Dr. Lakesha Rdz. Jazz Monge- therapist. Jackie Horton- therapist. Jesika Rivera- nurse Problem #1 Problem Name:: Depression Status of Goals:: Has shown a reduction of scores on the depressive domain since admission. Suicidal thoughts have also decreased 50% since admission. She is able to identify coping skills however has been inconsistent in her application of skills. Per self-report increased awareness of causes to depression however struggles when asked what leads to isolation (for days) cannot identify cause. Team Recommendations:: Continue with current goals. Plan to continue in IOP to prevent decompensation, increase healthy coping, and maintain safety. Problem #2 Problem Name:: Anxiety Status of Goals:: Reduction in scores on the anxiety domain of the DSM-5. Self- report of decreased anxiety. Within the last 10 days consistent socialization and decreased isolation. Improve communication with support (uncle, daughter) per pt. Able to identify calming skills however again struggles with consistent use. Contemplating seeking a job which is another huge step. She continues to have days were she does not leave the house if she has nothing scheduled (IOP, grief support, etc). Limited local support. Team Recommendations:: Continue with current plan. Encouraged to increase activities outside of the house. Encourage consistent attendance in IOP.
--- NOTE | 2021-11-28 09:00 | BH.SGPN.GN ---
Behaviors/Verbalizations/Mental Status: [] Eye contact is good. Motor activity is appropriate. Appearance is casual. Speech is Appropriate. Mood is anxious. Affect is congruent. Thoughts are linear and logical. No evidence of psychosis. Reviewed daily check in sheet and pt reports 1/5 for suicidal thoughts and 0/5 for intent. This has been baseline for patient Client Response/Progress/Benefit: [] Pt was an active participant in group discussion. Attentive. Provided appropriate feedback. Daily symptom tracker notes 1/5 for depression and anxiety. Emotion for today is enamored. She described starting what could be a relationship. Shared that she had conflict with support over the weekend (uncle and her daughter) who visited on Sunday. She did not elaborate on triggers to the conflict. Verbal argument with uncle Sunday which increased anxiety, panic, and irritability. Heated exchange which led to pt going to my room and shutting the door. She utilized skills and rather than isolating and shutting down she actually came back out and had a discussion with her aunt. The next day she texted all involved and voiced regret for her actions. She states that all involved took responsibility and through communication were able to work things out. She states that in months past this event could have led to a decompensation, cutting off all support, relapse, and isolation. Benefited from group support, encouragement, and feedback. Will continue in IOP to prevent decompensation, increase healthy coping, and stabilize mood. Narrative Note: []
--- NOTE | 2021-11-28 10:05 | BH.SGPN.GN ---
Behaviors/Verbalizations/Mental Status: []Client alert and oriented, casually dressed and groomed. Eye contact good. Motor activity appropriate. Speech within normal limits. Affect congruent, mood euthymic. Thoughts linear, logical, no signs of hallucinations or delusions. Client Response/Progress/Benefit: []Client responded well to session AEB sharing and listening attentively to others. Client participated in group discussion of the definition and impacts of anxiety, its benefits, as well as when it becomes abnormal. Clinician provided psychoeducation on anxiety diagnoses and the anxiety triangle of physical symptoms, safety behaviors, and common anxious thoughts. Client identified numbness, muscle aches, and shortness of breath as some physical symptoms of anxiety. Connected with discussion reviewing anxiety safety behaviors and reported personal safety behaviors as avoidance, shutting down, and self sabotage, and common anxious thoughts including negative self talk, worthlessness, and predicting the future. Client appeared to benefit from increased knowledge of anxiety diagnoses and causes, as well as improved self awareness of anxiety symptoms. Will continue IOP treatment to continue increasing anxiety management skills and decreasing self-isolation to improve daily functioning. Narrative Note: []
--- NOTE | 2021-11-28 11:10 | BH.SGPN.GN ---
Behaviors/Verbalizations/Mental Status: []Client alert and oriented, casually dressed and groomed. Eye contact good. Motor activity appropriate. Speech within normal limits. Affect congruent, mood anxious and euthymic. Thoughts linear, logical, no signs of hallucinations or delusions. Client Response/Progress/Benefit: []Client an attentive and actively engaged participant AEB listening, taking notes, and providing input to discussion. Reviewed safety behaviors she engages in that reinforce anxiety, identifying isolation and cancelling plans as one she often turns to. Attentive during psychoeducation on mindfulness coping skills and their impact on mental health wellness. The group worked together to brainstorm anxiety reduction strategies. Client reported she will practice art, gardening, meditation, walking, and body scans as ways to help manage anxious symptoms. Client seemed to benefit from increased repertoire of anxiety reduction skills. Client will continue IOP tx to continue to encourage implementation of healthy coping skills for managing anxiety, reduce isolation, as well as prevent decompensation. Narrative Note: []
--- NOTE | 2021-12-02 15:46 | BH.COMM ---
Communication Note - Communication with Client Communication Note: cancelled today due to weather
--- NOTE | 2021-12-05 10:23 | BH.COMM ---
Communication Note - Communication with Client Communication Note: cancelled due to to illness (3rd missed IOP day in a row).
== END 2021-12-05 23:59 ==
LOC: BHIOP 07:31
PROVIDERS: PCP Nurse Practitioner Family; Referring Provider Psychiatry & Neurology Psychiatry; Visit Provider Psychiatry & Neurology Psychiatry
DX: F31.4 Bipolar disorder, current episode depressed, severe, without psychotic features (principal); F11.99 Opioid use, unspecified with unspecified opioid-induced disorder; F41.8 Other specified anxiety disorders; F43.10 Post-traumatic stress disorder, unspecified; Z79.899 Other long term (current) drug therapy
CPT/HCPCS: 99214; H2012; H2020; S9480; 90832; 90834

== ENCOUNTER 2021-12-06 07:39 | Outpatient (RCR) | payer MEDICAID, SELFPAY ==
[2021-12-06 00:38] VITALS: BP 136/90; PULSE 69
--- NOTE | 2021-12-07 10:24 | BH.MDN_ITS ---
Multi-Disciplinary Note - Note 60-min Individual Time Started:: 09:00 Date: 12/07/21 Purpose of session/treatment goals addressed:: Pt tearful. Addressed treatment goal 1 obj2 (triggers to emotional distress and isolation) Eye Contact:: Poor Motor Activity:: Appropriate Appearance:: Disheveled Speech:: Appropriate Mood:: Depressed Affect:: Flat Thoughts:: Linear, Logical, No evidence of hallucinations/delusions noted Staff Interventions:: thought challenging, psychoeducation on: - triggers to decompensation, taught coping skills Client Response:: Pt presents today tearful. Reports depression, isolation, and ruminations since 12/01/21. I don't know if I will ever get better. I have nobody. Admits to cancelling IOP due to mental health symptoms the past 3 scheduled days. Significant decompensation since last IOP visit on 11/28/21 (Refer to note and tx review). She vented on frustrations with her current support (uncle and aunt) stating that my depression and loneliness makes them uncomfortable. According to pt they are very direct and concrete and she feels critiqued for her lack of progress I can't live up to expectations. There was a miscommunication between pt and daughter, uncle, and aunt which has led to increased distress for patient. She is ruminating on this text and shows it to therapist. We challenged negative thoughts and distortions and then problem- solved. Towards the end of the session pt reports being more hopeful and optimistic and glad that she attended IOP today. Risks/Concerns:: She denies suicidal ideations, plan, or intent. I'm not suicidal and I know what to do if I get to that point which is reach out to crisis I've reached out and admitted myself in the past. Progress Toward Goals/Plan:: Regression noted this past week. Pt missed IOP and on 11/30 and grief support on 12/01 due to weather and then noticed decompensation. She then slipped into mild depression and coped with isolation which extended several days. She did not utilize opposite action or other coping skills learned in IOP. She is able to see this currently. She was able to identify (with help from therapist) triggers to isolation and depression, which included feeling lonely, convincing herself that nobody care about her, and poor communication with support. We addressed these and began to problem-solve with plan to write up a concrete plan to utilize when she begins to notice decompensation in the future. Will continue in IOP to prevent decompensation, increase healthy coping, and improve functioning. Due to regression she may have to remain in IOP for a longer duration as her stability is not consistent.
--- NOTE | 2021-12-07 12:36 | PCM.BH.PN ---
Progress Note Progress Note: And history of Present Illness/Interim History: [] The patient is a 40-year-old female who is seen in follow-up at the [facility] health IOP program where she is being treated for bipolar depression, anxiety and PTSD. I last saw the patient 3 weeks ago and at that time we plan to increase the Seroquel. However, the patient never increase the Seroquel because her restless leg syndrome symptoms did not respond to the medication her outpatient psychiatrist provided so her outpatient psychiatrist decided to wean her off the Seroquel. She is decreased to 25 mg nightly now. Her sleep since decreasing the Seroquel is decreased to 1 to 4 hours a night for the last 4 days. She missed part of the last week of IOP due to stress at home which she straight states is due to family stressors and bad communication and texting. She said she was very depressed and anxious for 10 days in the past week or two. She remain sober from all drug use. The patient states that she still has some thought she would not care if she . She denies suicidal ideation, homicidal ideation, hallucinations, delusions or symptoms of wong. Panic attacks happen about once every three or 2 weeks now. Akathisia symptoms resolved when she decrease the Seroquel to 25 mg. Current Psychiatric Medications: [] Seroquel decreased to 25 mg several weeks ago.; [place] 300 mg p.o. twice a day; hydroxyzine, trihexyphenidyl Mental Status Examination: [] The patient is a 40-year-old female who is seen wearing a mask due to the pandemic and is casually dressed and groomed with good hygiene. She is ambulatory with a normal gait. She is wearing a mask due to the pandemic. Eye contact is good and speech is normal rate and rhythm and fluent with no pressure. Mood is mildly depressed. Affect is full and normal. Thought process is goal-directed and organized. Thought content: There is evidence of occasional passive thoughts of . There is no evidence of suicidal ideation, plan for suicide, homicidal ideation, hallucinations, delusions or symptoms of wong. Reality testing is intact. Judgment is limited Diagnoses: [] Plan: []
--- NOTE | 2021-12-09 09:00 | BH.SGPN.GN ---
Behaviors/Verbalizations/Mental Status: [] Eye contact is good. Motor activity is appropriate. Appearance is casual. Speech is Appropriate. Mood is euthymic. Affect is full. Thoughts are linear and logical. No evidence of psychosis. Reviewed daily check in sheet and no reports of suicidal ideations or intent. Client Response/Progress/Benefit: [] Pt was an active participant in group discussion. Attentive. Provided appropriate feedback. Daily symptom tracker notes 12/10 for anxiety and 10/12 for depression/anger. Mental health wins include having a conversation with her support. Pt had conference call with her aunt and uncle yesterday which went really well. Pt believes that she was able to communicate effectively and get her needs and concerns met. States we developed a plan of action. It was helpful. She reports that she completed her taxes yesterday and with assistance was able to open a checking account. Started working on her depression management plan as well. More hopeful about the future. Progress noted since 12/07/21. Did not isolate or avoid yesterday as she attended her grief support group. Benefited from group support, encouragement, and feedback. Will continue in IOP to prevent decompensation, decrease isolation, and increase healthy coping. Narrative Note: []
--- NOTE | 2021-12-09 13:10 | BH.MDN ---
Multi-Disciplinary Note - Note 30-min Individual Time Started:: 11:15 Date: 12/09/21 Purpose of session/treatment goals addressed:: Reviewed progress and current symptoms. Addressed treatment goal 1 obj2 (triggers to emotional distress and isolation) Eye Contact:: Good Motor Activity:: Restless Appearance:: Disheveled Speech:: Pressured Mood:: Anxious, Depressed Affect:: Congruent Thoughts:: Linear, Logical, No evidence of hallucinations/delusions noted Staff Interventions:: goal setting Client Response:: Pt requested to touch base with this therapist during first group to review relapse prevention plan (mental health). During last individual session we had agreed to start working on a plan to manage decompensation. She began working on the plan last evening. We reviewed some of the things that she had completed last night. She had identified a daily maintenance plan as well as some other short-term and long-term goals. The writing was positive. During the conversation she had mentioned that she has not slept in 3 days with last sleep being on Sunday12/05/21. She reports that she was tired last evening however just couldn't fall asleep. She states she might be in a manic state. Denies impulsive or risky behaviors. Reports increase in energy and motivation. Her speech is pressured and rapid, however thoughts are still organized. Denies psychosis. She reports being restless however tired. Last manic episode occurred on 10/08/21 which led to 3 nights w/o sleep. Outside psychiatrist had decreased her Seroquel at her request last week and she last took it on 12/04/21. She believes sleep issues may be the result of the medication change. Seroquel gave her restless leg. Reports being tired and is hopeful that she can sleep when she returns home. Risks/Concerns:: Denies SI, plan, or intent. Progress Toward Goals/Plan:: Progress noted since last week per pt report. In first group this AM she had identified several mental health wins over the past few days including completing her taxes, communicating with support, and setting up a bank account. She had also began to work on a plan to avoid decompensation. Lack of sleep in the past 3 days. Possible wong. She believes that either a recent med change or stressors with support (Argument) triggered the depressive and manic episodes. Will reach out to program psychiatrist to discuss sleep issues. Will continue in IOP to prevent decompensation and stabilize mood. Time Stopped:: 11:45
--- NOTE | 2021-12-09 13:56 | BH.COMM ---
Communication Note - Communication with Client Communication Note: Reached out to Dr. Rdz regarding pt's report of no sleep in 3 days. After a discussion on current symptoms and medications Dr. Rdz coordinated with this automobile service writer and program nurse to call in a prescription for Zyprexa 5mg PO at bedtime for sleep. 5 pills no refill. Pt made aware.
--- NOTE | 2021-12-12 09:00 | BH.SGPN.GN ---
Behaviors/Verbalizations/Mental Status: [] Eye contact is good. Motor activity is appropriate. Appearance is casual. Speech is rapid. Mood is euthymic. Some concern for hypomania. Affect is full. Thoughts are linear and logical. No evidence of psychosis. Reviewed daily check in sheet and no reports of suicidal ideations or intent. Client Response/Progress/Benefit: [] Pt was an active participant in group discussion. Attentive. Provided appropriate feedback. Daily symptom tracker notes 10/12 for depression, anxiety, and anger. Emotion for today is optimistic. Shared that she slept 6 hours on Sunday, Sunday, and Sunday and feels more stable this weekend. She had been up for 3 days prior to that. She reports god conversation with her support. Took action on goals this weekend and after talking with support is going to sell her 2 cars (both of which don't work) in order to buy a working car. Lack of transportation has been a financial and mental health obstacle. She also plans to preview a possible job this Sunday. Look around, talk with the owners, and see what the job entails before I commit. She has not worked since 2005. Financially she is feeling pressure to work however insight that if she agrees she would need to start very slow. Progress noted per pt report. Overall she has struggled with consistent stability often going 7-10 days with stability and then isolating for 7-10 days. Benefited from group support, encouragement, and feedback. Will continue in IOP to maintain safety, stabilize mood, and improve functioning. Narrative Note: []
--- NOTE | 2021-12-12 10:05 | BH.SGPN.GN ---
Behaviors/Verbalizations/Mental Status: []Client alert and oriented, casually dressed and groomed. Eye contact good. Motor activity appropriate. Speech within normal limits. Affect congruent, mood euthymic. Thoughts linear, logical, no signs of hallucinations or delusions. Client Response/Progress/Benefit: [] Pt was an attentive participant AEB taking notes and contributing frequently. Attentive during psychoeducation on Conflict Styles ( Avoidant, Competing, Accommodating, and Collaborating). Participated in interactive group discussion on benefits of conflict.? Pt along with peers identified several reasons conflict is often avoided as well as why conflict is beneficial to one?s mental health and relationships. Pt reported connecting most with the avoiding style. Pt shared throughout her life she has been ?all the styles? but the past three years pt has been avoiding a lot of things in her life. Pt stated she is now working on rebuilding the relationships that have been impacted by pt?s avoidance. Benefited from increased awareness on conflict styles. Will continue IOP tx to reduce isolation, improve mood stability, and further improve daily functioning. Narrative Note: []
--- NOTE | 2021-12-12 11:15 | BH.SGPN.GN ---
Behaviors/Verbalizations/Mental Status: []Client alert and oriented, casually dressed and appropriately groomed. Eye contact good. Motor activity appropriate. Speech within normal limits. Affect congruent, mood euthymic. Thoughts linear, logical, no signs of hallucinations or delusions. Client Response/Progress/Benefit: []Client engaged in session AEB contributing to discussion and taking notes. Client did well to participate during the activity in which participants were challenged to eliminate various items through group consensus. Client contributed to discussion of the barriers that occurred during the activity as well as the conflict resolution strategies. Client reported she would like to work on using a calm tone in the moment. Client stated she needs to work on managing her emotions in the moment better by using belly breathing and taking a step away. Appeared to benefit from learning strategies to better manage conflict. Will continue IOP tx to reduce negative thinking, improve mood stability, and prevent decompensation.
--- NOTE | 2021-12-14 09:03 | BH.SGPN.GN ---
Behaviors/Verbalizations/Mental Status: []Eye contact is good. Motor activity is appropriate. Appearance is casual. Speech is appropriate. Mood is euthymic. Affect is congruent. Thoughts are linear and logical. No evidence of psychosis. Reviewed daily symptom tracker sheet with no reports of suicidal ideations, plan, or intent. Client Response/Progress/Benefit: []Client was engaged throughout group session, sharing and providing insight to others. Client reported her emotion as ?happy?. Client discussed that she has been reframing her thoughts, reminding herself that bad moments do not have to turn into bad days. Client discussed that she had lost an important gift from a loved one that had passed, but that she was able to manage her emotions and find it. 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 Progress noted AEB client self - report of increased use of emotion regulation. Appeared to benefit from supportive group environment and reflecting on areas of progress. Will continue IOP treatment to continue increasing mood stability and application of healthy coping skills to improve daily functioning. Narrative Note: []
--- NOTE | 2021-12-14 10:16 | BH.MDN ---
Multi-Disciplinary Note - Note 45-min Individual Time Started:: 09:15 Date: 12/14/21 Purpose of session/treatment goals addressed:: Reviewed current symptoms and progress in IOP. Addressed all treatment plan goals. Pt completed an extensive Crisis and Maintain plan which we reviewed. Eye Contact:: Good Motor Activity:: Appropriate Appearance:: Neat Speech:: Rapid Mood:: Euthymic Affect:: Full Thoughts:: Linear, Logical, No evidence of hallucinations/delusions noted Staff Interventions:: CBT techniques, mindfulness skills, discharge planning, goal setting Client Response:: Pt presents today in good spirits. She has not had an isolative episode in over a week, however was hypomanic last week. Currently she states I don't think I'm manic anymore. Reports that her sleep schedule is back to normal. Admits that she doesn't remember some conversations that she had which is frustrating. Typically after a manic episode she has significant regrets for her actions, however this is not the case currently. Able to identify warning signs to her wong which she ignored. Able to identify the benefits to identifying warning signs as well as possible actions to take (be honest with support, reach out to psych or PCP, etc). Denies any impulsive or reckless behaviors while manic this time. Over the course of the weekend and this week pt has begun to completed an extensive mental health plan which includes; maintain plan, distress tolerance skills, warning signs, crisis plan, wellness toolbox, triggers, and internal/external skills. This plan basically encompasses all treatment plan goals and skills learned in [facility]. Hopeful and feels confident. Risks/Concerns:: no current risks or concerns. Progress Toward Goals/Plan:: Consistent attendance and progress has been a struggle for pt while in [facility]. Treatment team has noticed a pattern where mood is stable and she is utilizing skills for 7-10 days then decompensates (isolation, avoidance, not using skills, poor treatment compliance) for 7-10 days. This pattern has inhibited ability to maintain stability. This has been primary reason for continued stay in IOP. Recently was hypomanic last week and presently reported being stable. Plan is to monitor for another week and if she can maintain stability we will discharge. Program psychiatrist added an additional mood stabilizer. Time Stopped:: 10:00
--- NOTE | 2021-12-16 09:06 | BH.SGPN.GN ---
Behaviors/Verbalizations/Mental Status: []Eye contact is good. Motor activity is appropriate. Appearance is casual. Speech is Appropriate. Mood is euthymic. Affect is congruent. Thoughts are linear and logical. No evidence of psychosis. Reviewed daily check in sheet and no reports of suicidal ideations or intent. Client Response/Progress/Benefit: []Pt receptive of session and engaged throughout. Reports current emotion as ?inspired? and ?empowered? today as she has had several personal mental health wins over the past several days. Noted obtaining employment with the [employer] she had been receiving rides for appointments from and is feeling optimistic about beginning work again soon. Additionally discussed a personal victory as being able to take her sink apart to find the earring she had dropped down the drain the previous date. Described feeling proud and accomplished by her ability to remain calm and problem-solve this stressor in the moment. Went on to discuss trying to more regularly use affirmations and remind herself she is ?allowed to have happy days? without there being a stressor or something bad that happens. Pt appeared to benefit from acknowledging progress and supportive feedback provided by group. Will continue in IOP tx to improve social support system, continue to stabilize mood, and prevent decompensation. Narrative Note: []
--- NOTE | 2021-12-16 10:15 | BH.SGPN.GN ---
Behaviors/Verbalizations/Mental Status: []Client alert and oriented, casually dressed and groomed. Eye contact good. Motor activity appropriate. Speech within normal limits. Affect congruent, mood euthymic. Thoughts linear, logical, no signs of hallucinations or delusions. Client Response/Progress/Benefit: []Client responded well to session AEB sharing and listening attentively to others. Client participated in activity illustrating how positive and negative perspectives affect how individuals view situations, sharing observations and insights. Group discussed and defined perspective and what impacts it, with client contributing cognitive distortions, relationships, and world news as examples. Client identified that when she has a positive perspective she uses tools, has less anxiety, and higher self-esteem and confidence. Appeared to benefit from increased knowledge and self-awareness of perspective. Will continue IOP treatment to continue improving application of healthy coping skills and decreasing negative self talk to improve daily functioning. Narrative Note: []
--- NOTE | 2021-12-16 11:15 | BH.SGPN.GN ---
Behaviors/Verbalizations/Mental Status: []Client alert and oriented, casually dressed and groomed. Eye contact good. Motor activity appropriate. Speech within normal limits-very vocal. Affect congruent, mood euthymic. Thoughts linear, logical, no signs of hallucinations or delusions Client Response/Progress/Benefit: []Pt did well to remain attentive throughout session, AEB providing input throughout discussion. Engaged as group reviewed the importance of taking a strengths-based approach to foster a healthier perspective and better manage mental health symptoms. Completed strengths exploration worksheet and identified personal strengths to include: honesty, empathy, intelligence. Pt reported these strengths are currently helping pt mend relationships, reduce isolation, and gain self-confidence. Pt stated self-sabotage and fear of failure keep pt from using strengths and pt helped group identify strategies to increase acknowledgement of strengths. Benefited from identifying personal strengths and strategies for enhancing use of identified strengths. Pt to continue IOP tx to promote gains, gain prolonged mood stability, and further combat distortions. Narrative Note: []
--- NOTE | 2021-12-19 09:01 | BH.SGPN.GN ---
Behaviors/Verbalizations/Mental Status: [] Eye contact is good. Motor activity is WNL. Appearance is casual. Speech is rapid at times. Mood is euthymic, positive. Affect is full. Thoughts are linear and logical. No evidence of psychosis. Reviewed daily check in sheet and no reports of suicidal ideations or intent. Client Response/Progress/Benefit: [] Pt was an active participant in group discussion. Attentive. Provided appropriate feedback. Emotion for today is giddy. Pt reported mental health positive as using breathing skills and watched oddly satisfying videos. Client stated additional mental health positive as getting sleep the last three days. Pt stated she has not been working on her goal of getting out of her bedroom for at least 15 minutes a couple times a week. Pt reported she didn't feel like she was isolating this weekend despite being in her room majority of the time. Pt stated she was focused on relaxation and staying away from causing any drama. Benefited from group support, encouragement, and feedback. Progress noted per pt report. Will continue in IOP to decrease isolated behaviors, challenge distorted thoughts and prevent decompensation.
--- NOTE | 2021-12-19 10:05 | BH.SGPN.GN ---
Behaviors/Verbalizations/Mental Status: []Client alert and oriented, casually dressed and groomed. Eye contact good. Motor activity appropriate. Speech within normal limits. Affect congruent, mood euthymic. Thoughts linear, logical, no signs of hallucinations or delusions. Client Response/Progress/Benefit: []Client responded well to session AEB sharing and listening attentively to others. Client provided examples throughout group discussion identifying what makes up a support system, what weakens it, and the benefits of social support. Client provided examples of social supports, including neighbors and support groups, and benefits including hearing different perspectives on situations, and love. Client participated in experiential activity illustrating the importance of social support as well as modeling communication that strengthens support systems. Client voiced feelings and problem solved with group members throughout activity, using skills to emotionally regulate. Appeared to benefit from increased knowledge of social support and self-awareness of personal support system. Will continue IOP treatment to promote gains and continue increasing mood stability to increase daily functioning. Narrative Note: []
--- NOTE | 2021-12-19 11:15 | BH.SGPN.GN ---
Behaviors/Verbalizations/Mental Status: []Client alert and oriented, casually dressed and groomed. Eye contact good. Motor activity appropriate. Speech within normal limits. Affect congruent, mood euthymic. Thoughts linear, logical, no signs of hallucinations or delusions. Client Response/Progress/Benefit: []pt was an active participant throughout AEB contributing to discussion, providing personal examples, and taking notes. Pt processed emotions pt felt in the activity and how pt coped in the moment. Pt provided input during discussion on the types of support our supports can provide. Pt reports wanting to work on increasing social supports, noting this will provide pt connection, a hobby, and reduce isolation. Pt plans to improve this support by exploring [employer] which pt has used in the past. Pt seemed to benefit from identifying the type of support and how this support will aid in promoting overall mental wellness. 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 Will continue IOP tx to promote mood stability, increase social support, and reinforce emotional regulation skills. Narrative Note: []
--- NOTE | 2021-12-21 10:10 | BH.SGPN.GN ---
Behaviors/Verbalizations/Mental Status: []Client alert and oriented, casually dressed and groomed. Eye contact good. Motor activity appropriate. Speech within normal limits. Affect congruent, mood euthymic. Thoughts linear, logical, no signs of hallucinations or delusions. Client Response/Progress/Benefit: []Pt was an active participant in group discussion and experiential activity. Attentive during psychoeducation. Group had an interactive discussion on the benefits of emotional regulation in which pt provided insight. Group identified several benefits to emotional regulation which included; more stable relationships, improved communication, and better ability to manage stress. Group also was able to identify how emotions can impact our communication leading to; difficulty articulating our thoughts, shutting down, mind-reading, and getting defensive. Pt participated in experiential activity and reported in the past communication was a huge challenge for pt when stressed, but pt is much better now with communicating without hurting others. Benefited from increased awareness into how emotions can impact one's ability to effectively communicate. Will continue IOP tx to promote mood stability, reinforce healthy coping skills, and establish aftercare. Narrative Note: []
--- NOTE | 2021-12-21 10:11 | BH.MDN_ITS ---
Multi-Disciplinary Note - Note 45-min Individual Time Started:: 09:15 Date: 12/21/21 Purpose of session/treatment goals addressed:: Reviewed progress and stability over the past 2 weeks. Discharge planning. Addressed all treatment plan goals. Eye Contact:: Good Motor Activity:: Appropriate Appearance:: Casual Speech:: Rapid Mood:: Euthymic Affect:: Bright Thoughts:: Linear, Logical, No evidence of hallucinations/delusions noted Staff Interventions:: CBT techniques, discharge planning Client Response:: Pt states I'm happier and less anxious. I'm more relaxed as well. Increased energy over the past two weeks. Possibly hypomanic however per pt she is motivated and accomplishing tasks. Sleep has been good with 6 hours per night with the exception of 12/15/21 where she did not sleep. Believes that IOP has given her confidence and new coping skills. We reviewed her treatment plan and her maintenance plan (refer to 12/14/21 note). This maintain plan identifies several healthy coping skills, trigger to distress, and calming skills which she has been consistently using for past 10 days. Pt has also reduced avoidance behaviors consistently in the past week as she has attended both IOP and grief group, taken walks, interviewed for potential jobs, and communicated with support almost daily. She is agreeable with plan to discharge on 12/23/21. Risks/Concerns:: No risks or concerns noted. Progress Toward Goals/Plan:: Progress noted (Refer above). Has met treatment plan goals and has shown stability for the past 10 days which had been a struggle early on in IOP. Medication compliant and feels that Latuda is beneficial. Pt self reports reduced depression, isolation, and anxiety. Increased motivation, hope, and purpose. Plans to begin to work again which she has not attempted in over 10 years. Plan is to discharge on 12/23/21. She is scheduled with therapist on 01/05/22, psychiatry on 12/29/21, and plans to attend aftercare program here at [facility]. Time Stopped:: 10:00
--- NOTE | 2021-12-21 11:20 | BH.SGPN.GN ---
Behaviors/Verbalizations/Mental Status: []Client alert and oriented, casually dressed and groomed. Eye contact good. Motor activity appropriate. Speech within normal limits. Affect congruent, mood euthymic. Thoughts linear, logical, no signs of hallucinations or delusions. Client Response/Progress/Benefit: []Client engaged in session AEB client listening attentively to peers and providing input. Attentive during psychoeducation on 4 zones of regulation. Client able to identify feelings and behaviors for each zone. Client identified coping skills one can use to support self in each zone which included: music, art, meditation, guided meditation, and 5 senses. Client reports she can benefit from practicing gardening, positive affirmations, and guided meditation. Benefited from increased education on zones of regulation or stages of alertness for emotions and healthy coping skills to use for each zone. Will continue IOP tx to prevent decompensation, challenge negative thinking, and continue use of healthy coping skills.
--- NOTE | 2021-12-23 09:00 | BH.SGPN.GN ---
Behaviors/Verbalizations/Mental Status: []Eye contact is good. Motor activity is appropriate. Appearance is casual. Speech is Appropriate. Mood is euthymic, positive. Affect is full. Thoughts are linear and logical. No evidence of psychosis. Reviewed daily check in sheet and no reports of suicidal ideations or intent. Client Response/Progress/Benefit: []Pt responded well to session AEB sharing thoughts and feelings and listening attentively to peers. Pt stated today is her last day in IOP. Pt reported she has noticed significant progress since starting IOP. 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 Pt reported mental health positive was getting outside the last couple of days instead of isolation. Seemed to benefit from reflecting on treatment progress and support from peers. Progress noted per pt report. Pt has made significant progress and will discharge from IOP today.
--- NOTE | 2021-12-23 10:38 | BH.DS ---
Discharge Summary - Demographics Date of Admission:: 10/26/21 Discharge Date: 12/23/21 Presenting Problems at Admission:: Pt is a 40 year old female with hx of Bipolar, Anxiety, and Polysubstance Use D/O. Pt was self-referred to IOP after a recent psychiatric admission to [facility] from 08/31/21-09/06/21 due to suicidal ideations with plan to overdose. Reports that hospitalization was beneficial and since that feels much better. Prior to admit was not on any psychiatric medications or linked with mental health treatment. Pt reports decompensating mental health since of BF in 02/2021. Along with worsening mental health she was also uses meth on a daily basis until her psych admit on 08/31/21. Currently sober. Since psychiatric admission she reports improve sleep, appetite, energy, and motivation. Continues to report crying spells, panic attacks (2-3x weekly), and feelings of worthlessness. Limited support. Significant isolative behaviors since 02/2021 stating that she never leaves the house. Currently living alone as her daughter (15) moved in with uncle due to conflict and mother's mental health struggles. Hx of addiction (opiates, meth, alcohol). Hx of trauma. Denies HI or psychosis. Denies active suicidal ideations, plan, or intent. Pt reports hx of previous suicide attempts however clarifies that they occurred while she was under the influence with last occurring in 2017. States I tried to overdose on pills however I woke up. Family hx of addiction and and depression (mother and maternal grandmother). Discharge Diagnoses:: 1. Bipolar 1 disorder, most recent episode depressed, severe without psychosis (F31.4). 2. Generalized anxiety disorder. 3. PTSD. 4. Methamphetamine use disorder, sober x2 months Reason for Discharge:: Pt completed all treatment plan goals. Consistent stability for 2 weeks. No longer meets criteria for IOP level of care. - Treatment Progress During Treatment & Response: Progress during IOP has been sporadic and inconsistent with depressive and manic episodes however has shown stable mood for past 2 weeks. According to DSM 5 cross cutting scores pt has shown a 63% reduction in overall symptoms. Scores indicate a 50% reduction in the depression domain, 75% reduction in anxiety domain, 50% reduction in SI, and 75% reduction in wong domain. Pt states I'm happier and less anxious. I'm more relaxed as well. Increased energy over the past two weeks. Reports being motivated and accomplishing tasks. Sleep has been good with 6 hours per night with the exception of 12/15/21 where she did not sleep. Believes that IOP has given her confidence and new coping skills. We reviewed her treatment plan and her maintenance plan (refer to 12/14/21 note). This maintain plan identifies several healthy coping skills, trigger to distress, and calming skills which she has been consistently using for past 10 days. Pt has also reduced avoidance behaviors consistently in the past week as she has attended both IOP and grief group, taken walks, interviewed for potential jobs, and communicated with support almost daily. She is agreeable with plan to discharge on 12/23/21. Issues Still to be Addressed:: grief, estranged relationship with daughters, trauma, depression, and anxiety Discharge Recommendations/Instructions:: She is scheduled with therapist (Libertad) at [facility] on 01/05/22, psychiatry with Ovi Rubio on 12/29/21, and plans to attend aftercare program here at [facility]. Discharge Handout: Complete Discharge Handout with client on aftercare options and continuity of care.
--- NOTE | 2021-12-23 11:14 | BH.SGPN.GN ---
Behaviors/Verbalizations/Mental Status: []Client alert and oriented, casually dressed and groomed. Eye contact good. Motor activity appropriate. Speech within normal limits. Affect congruent, bright. mood euthymic. Thoughts linear, logical, no signs of hallucinations or delusions. Client Response/Progress/Benefit: []Client engaged during activity and discussion AEB providing input and supportive feedback, as well as taking notes throughout. Client did well to engage as group worked on identifying characteristics and benefits of adopting a growth mindset. Worked with fellow participants in reframing the example fixed thoughts into growth mindset thoughts, providing support throughout. Client worked in small group to apply skills learned to reframe own personal fixed thoughts. Reframed personal fixed thought of ?I have never been able to stay sober in the past, so I know it won?t work this time? with growth mindset thought of ?This may take time and effort, but I can always improve and learn from my mistakes?. Noted that this would aid in reducing negative self-talk and doubt, and improve willingness to ask for help. Benefitted from discussing benefits of growth mindset and brainstorming strategies for prompting growth-mindset. Will discharge from IOP tx and continue with outpatient care to maintain gains, continue to improve sx management, and prevent decompensation. Narrative Note: []
--- NOTE | 2021-12-23 12:19 | BH.MDN_ITS ---
Multi-Disciplinary Note - Note 30-min Individual Time Started:: 10:15 Date: 12/23/21 Purpose of session/treatment goals addressed:: Reviewed progress in IOP, reviewed DSM-5 outcome measurements, and aftercare plan. Eye Contact:: Good Motor Activity:: Appropriate Appearance:: Casual Speech:: Appropriate Mood:: Euthymic Affect:: Full Thoughts:: Linear, Logical, No evidence of hallucinations/delusions noted Staff Interventions:: discharge planning, reviewed DSM-5 Client Response:: Pt presented today in good spirits today as today is her last day in IOP. She continues to utilize her skills and daily maintenance plan. Continues to report improved communication with support. Has plans to seek employment in the near future. Proud of herself for showing consistent mood stability for the past 2 weeks with limited isolative and avoidance behaviors. We reviewed her outcome measurement scores and finalized her aftercare plan. Risks/Concerns:: no risks or concerns noted. Progress Toward Goals/Plan:: Progress during IOP has been sporadic and inconsistent with depressive and manic episodes however has shown stable mood for past 2 weeks. According to DSM 5 cross cutting scores pt has shown a 63% reduction in overall symptoms. Scores indicate a 50% reduction in the depression domain, 75% reduction in anxiety domain, 50% reduction in SI, and 75% reduction in wong domain. Pt states I'm happier and less anxious. I'm more relaxed as well. Increased energy over the past two weeks. Reports being motivated and accomplishing tasks. Sleep has been good with 6 hours per night with the exception of 12/15/21 where she did not sleep. Believes that IOP has given her confidence and new coping skills. We reviewed her treatment plan and her maintenance plan (refer to 12/14/21 note). This maintain plan identifies several healthy coping skills, trigger to distress, and calming skills which she has been consistently using for past 10 days. Pt has also reduced avoidance be haviors consistently in the past week as she has attended both IOP and grief group, taken walks, interviewed for potential jobs, and communicated with support almost daily. She is agreeable with plan to discharge today Time Stopped:: 10:40
--- NOTE | 2021-12-28 14:11 | PCM.BH.PN_ITS ---
Progress Note Progress Note: Progress Note Progress Note: history of Present Illness/Interim History: [] Patient is a 40-year-old female who is seen in follow-up at the [facility] behavioral health IOP program where she is being treated for bipolar depression, anxiety and PTSD. I last saw the patient 2 weeks ago and at that time Latuda was started at 40 mg p.o. at dinner with food. The patient was instructed that if she was tolerating it well she could increase to 80 mg in the evening with food after several days. The patient increased to 80 mg at dinner with food about 10 days ago and and states that she feels much better. Her sleep is vastly improved at 6 hours straight every night and this is very good for her. Her mood is good but not grandiose or manic. Her mind is clear and her her concentration is good. She denies any passive thoughts of and denies any suicidal ideation in the past 2 weeks. She is currently looking for a job and is optimistic about the future. She has noticed no side effects on the Latuda but feels her mood is much more stable. She denies any drug use. Current Psychiatric Medications: [] Latuda 80 mg p.o. in the evening with food (times almost 2 weeks); she is also continuing her lithium, hydroxyzine, melatonin and Flexeril at their prior doses. Mental Status Examination: [] The patient is a 40-year-old female who appears normal for stated age and is seen wearing a mask due to the pandemic. She is casually dressed and groomed with good hygiene. She has no psychomotor agitation or retardation. Eye contact is good and speech is normal rate and rhythm and fluent with no pressure. Mood is euthymic. Affect is full and normal. Thought process is goal-directed and organized. Thought content: There is no evidence of passive thoughts of , suicidal ideation, plan for suicide, homicidal ideation, hallucinations, delusions or symptoms of wong. Judgment is intact. Impulsivity is moderate. Insight is fair to good. Diagnoses: [] 1. Bipolar 1 disorder, most recent episode depressed, severe without psychosis (resolving) 2. Generalized anxiety disorder 3. PTSD 4. Methamphetamine and opiate and alcohol use disorder (sober 416 days) 5. Primary support issues Diagnosis/Plan: Plan: [] The patient will continue the IOP program as the structure, support, education and group therapy will hopefully prevent worsening of the patient's symptoms which might require hospitalization. She felt safe during the interview and if it anytime she does not feel safe she agrees to let us know or go to the emergency room. The risks, options, possible complications and side effects of the medications were discussed with the patient again and she understands and accepts these. The patient will continue her current medication dose and a prescription was sent in for Latuda 80 mg, 1 p.o. at dinner with food in the evening. #30 with 1 refill. The patient will continue to follow-up with her outpatient psychiatric and medical providers.
== END 2021-12-23 12:27 | disposition home or self-care (01) ==
LOC: BHIOP 07:39
PROVIDERS: PCP Nurse Practitioner Family; Referring Provider Psychiatry & Neurology Psychiatry; Visit Provider Psychiatry & Neurology Psychiatry
DX: F31.4 Bipolar disorder, current episode depressed, severe, without psychotic features (principal); F11.99 Opioid use, unspecified with unspecified opioid-induced disorder; F41.8 Other specified anxiety disorders; F43.10 Post-traumatic stress disorder, unspecified; Z79.899 Other long term (current) drug therapy
CPT/HCPCS: 99213; 99214; H2012; H2020; S9480; 90832; 90834; 90837